=== PATIENT | female | born 1985 | race Caucasian/White ===

== ENCOUNTER 2018-10-11 10:28 | Day surgery (SDC) | payer MEDICAID ==
[2018-10-11] MEDS ORDERED: FAMOTIDINE INJ/PF 20 MG/2 ML SDV IV PRN (11:40)
[2018-10-11] MEDS: HYDROMORPHONE HCL INJ/PF 2 MG/ML AMPULE IV PRN ×3 (11:50→21:34)
[2018-10-11 12:39] LABS: HEMATOCRIT 39.7 % (36.0-47.0); HEMOGLOBIN 13.6 g/dL (12.0-15.5); MEAN CORPUSCULAR HGB CONC 34.2 g/dL (32.0-36.0); MEAN CORPUSCULAR VOLUME 88 fl (80-97); PLATELET COUNT 309 10^3/uL (150-450); RED BLOOD COUNT 4.52 10^6/uL (3.72-5.28); RED CELL DISTRIBUTION WIDTH 12.6 % (11.5-14.0); WHITE BLOOD COUNT 26.2 10^3/uL (4.0-10.5)
[2018-10-11 13:19] LABS: ABSOLUTE LYMPHOCYTES# (MANUAL) 2.9 10^3/uL (0.5-4.7); ABSOLUTE MONOCYTES # (MANUAL) 1.8 10^3/uL (0.1-1.4); BAND NEUTROPHILS % (MANUAL) 1 % (3-5); BASOPHILS % (MANUAL) 0 % (0-2); EOSINOPHILS % (MANUAL) 0 % (0-6); LYMPHOCYTES % (MANUAL) 11 % (13-45); MONOCYTES % (MANUAL) 7 % (3-13); PLATELET COMMENT ADEQUATE; RBC MORPHOLOGY COMMENT NORMO-CYTIC/CHROMIC; SEGMENTED NEUTROPHILS % (MAN) 81 % (42-78); TOTAL CELLS COUNTED 100
[2018-10-11] MEDS ORDERED: METOCLOPRAMIDE HCL INJ/PF 10 MG/2 ML SDV ONE (14:08)
[2018-10-11] MEDS ORDERED: ONDANSETRON HCL INJ/PF 4 MG/2 ML SDV ONE ×2 (14:08→22:02)
[2018-10-11] MEDS: AMPICILLIN SODIUM/SULBACTAM NA 3 GM in NORMAL SALINE 100 ML IV SCH ×2 (14:27→21:35)
[2018-10-11] MEDS ORDERED: ZOLPIDEM TARTRATE 5 MG TABLET PO PRN (21:36)
[2018-10-11] MEDS ORDERED: ONDANSETRON HCL INJ/PF 4 MG/2 ML SDV IV PRN (22:56)
[2018-10-12] MEDS ORDERED: DIPHENHYDRAMINE HCL 50 MG/ML VIAL ONE (03:07)
[2018-10-12] MEDS ORDERED: DIPHENHYDRAMINE HCL 50 MG/ML VIAL IV PRN ×2 (03:09→14:28)
[2018-10-12] MEDS: AMPICILLIN SODIUM/SULBACTAM NA 3 GM in NORMAL SALINE 100 ML IV SCH ×2 (06:54→18:14)
[2018-10-12] MEDS ORDERED: BUPIVACAINE HCL 0.25% /EPINEPHRINE INJ/PF 30 ML SDV ONE (13:40)
[2018-10-12] MEDS ORDERED: FENTANYL CITRATE INJ/PF 100 MCG/2 ML AMPUL ONE (13:40)
[2018-10-12] MEDS ORDERED: KETAMINE HCL INJ 500 MG/10 ML VIAL ONE (13:40)
[2018-10-12] MEDS ORDERED: PROPOFOL INJ 200 MG/20 ML VIAL IV ONE (13:41)
[2018-10-12] MEDS ORDERED: MIDAZOLAM 2 MG/2 ML INJ ONE (13:41)
[2018-10-12] MEDS ORDERED: HYDROMORPHONE HCL INJ/PF 2 MG/ML AMPULE ONE (14:19)
[2018-10-12] MEDS ORDERED: MEPERIDINE HCL/PF INJ 25 MG/1 ML DISP.SYRIN IV PRN (14:28)
[2018-10-12] MEDS ORDERED: FENTANYL CITRATE INJ/PF 100 MCG/2 ML AMPUL IV PRN ×3 (14:28)
[2018-10-12] MEDS ORDERED: MORPHINE SULFATE 10 MG/ML INJ IV PRN (14:28)
[2018-10-12] MEDS ORDERED: PROMETHAZINE HCL INJ 25 MG/1 ML VIAL IV PRN ×2 (14:28)
[2018-10-12] MEDS ORDERED: HYDROMORPHONE HCL INJ/PF 2 MG/ML AMPULE IV PRN ×2 (14:29→15:27)
[2018-10-12] MEDS: FENTANYL CITRATE INJ/PF 100 MCG/2 ML AMPUL ONE ×2 (15:15→15:20)
[2018-10-12] MEDS ORDERED: ACETAMINOPHEN 1,000 MG/100 ML RTUPB IV PRN (15:27)
[2018-10-12] MEDS ORDERED: OXYCODONE-ACETAMINOPHEN 5-325 MG TABLET PO PRN (15:29)
[2018-10-12] MEDS ORDERED: ACETAMINOPHEN 1,000 MG/100 ML RTUPB IV ONE (15:33)
[2018-10-12] MEDS ORDERED: KETOROLAC TROMETHAMINE INJ/PF 30 MG/1 ML SDV ONE (15:33)
[2018-10-12] MEDS: HYDROMORPHONE HCL INJ/PF 2 MG/ML AMPULE ONE ×2 (15:35→16:00)
[2018-10-12] MEDS ORDERED: LIDOCAINE 2% URO-JET 5 ML KIT ONE (16:02)
[2018-10-12] MEDS: RINGERS SOLUTION,LACTATED 1,000 ML IV PRN (17:41)
[2018-10-12] MEDS: OXYCODONE-ACETAMINOPHEN 5-325 MG TABLET PO PRN (17:41)
[2018-10-12] MEDS: BENZOCAINE/MENTHOL AEROSOL SPRAY 56 ML EXT PRN ×3 (17:43→22:38)
[2018-10-12] MEDS: DIPHENHYDRAMINE HCL 25 MG CAPSULE ONE ×2 (19:00→19:11)
[2018-10-12] MEDS: DIPHENHYDRAMINE HCL 50 MG CAPSULE PO PRN (19:10)
--- NOTE | 2018-10-12 19:21 | OPERATIVE REPORT E ---
Operative Report NAME: MICHAEL BOWDEN : 1985 AGE: 33Y DATE OF SURGERY: 10/12/2018 ROOM: 208 PREOPERATIVE DIAGNOSIS: BARTHOLIN'S GLAND ABSCESS. POSTOPERATIVE DIAGNOSIS: BARTHOLIN'S GLAND ABSCESS. OPERATION: Incision and drainage (I and D) of the Bartholin's gland with excision of the Bartholin's gland. SURGEON: JD AMARAL M.D. ANESTHESIA: Dr. Barron with general. FINDINGS: Necrotic inflamed tissue within the Bartholin's gland, with significant site of hardened cellulitis. The gland was draining at the beginning of the case, with incision. Culture was obtained at this time. PATHOLOGY: Glandular tissue. PROCEDURE: Patient was taken to the operating room, prepared and draped in normal sterile fashion in dorsal lithotomy position. Under sterile condition, an in and out cath was performed for approximately 10 mL of clear urine. The infected area was noted and it was noted that it was already draining. The drainage was collected on aerobic and anaerobic culture, and this was passed off to be sent to microbiology. The cellulitic portion of the gland was then opened using a 15 blade, and the tissue was identified and noted to be quite jolly and necrotic in nature. The rest of the drainage was released via this incision and cleaned out copiously with irrigation. The gland was then located and this was excised using some blunt dissection as well as Metzenbaums. The main part of the gland was then removed. A few more cellulitic areas were noted and these were excised using the Metzenbaums. The defect was then closed in layers with 2-0 Vicryl and then 0 Vicryl and then the skin was closed with 2-0 Vicryl in a running manner. The patient was hemostatic at the conclusion of the case. Tolerated procedure well and was taken to recovery in stable condition. DICTATING PHYSICIAN: JD AMARAL M.D. [id number] PHY#: [id number] ID: [id number] JOB#: [id number] ACCT: [id number] cc:JD AMARAL M.D. >
[2018-10-12] MEDS: KETOROLAC TROMETHAMINE INJ/PF 30 MG/1 ML SDV IV SCH (22:03)
[2018-10-13] MEDS ORDERED: MORPHINE SULFATE 10 MG/ML INJ IV PRN ×2 (00:19→10:00)
[2018-10-13] MEDS: AMPICILLIN SODIUM/SULBACTAM NA 3 GM in NORMAL SALINE 100 ML IV SCH ×2 (02:11→09:38)
[2018-10-13] MEDS: OXYCODONE-ACETAMINOPHEN 5-325 MG TABLET PO PRN ×2 (03:10→10:38)
[2018-10-13] MEDS: DIPHENHYDRAMINE HCL 50 MG CAPSULE PO PRN (03:10)
[2018-10-13] MEDS: KETOROLAC TROMETHAMINE INJ/PF 30 MG/1 ML SDV IV SCH (05:12)
[2018-10-13] MEDS: RINGERS SOLUTION,LACTATED 1,000 ML IV PRN (05:13)
--- NOTE | 2018-10-13 11:56 | PDOC DISCHARGE SUMMARY ---
General - Admit/Disc Date/PCP Admission Date/Primary Care Provider: 10/11/18 10:28 Discharge Date: 10/13/18 - Discharge Diagnosis (1) Bartholin's gland abscess Is this a current diagnosis for this admission?: Yes (2) Cellulitis Is this a current diagnosis for this admission?: Yes - Additional Information Resuscitation Status: Full Code Discharge Diet: As Tolerated Discharge Activity: No Lifting Over 10 Pounds, No Lifting/Push/Pulling, Pelvic Rest, No tub bath Home Medications: Escitalopram Oxalate [Lexapro 10 mg Tablet] 10 mg PO DAILY 10/11/18 History of Present Illness History of Present Illness: MICHAEL BOWDEN is a 33 year old female Hospital Course Hospital Course: underwent I&D and bartholin's gland excision in OR. Has had post op hematoma of vulva that is stable and not expanding. several doses of IV unasyn and cellulitis seen at admission is resolved. able to void and is tolerating a regular diet. Physical Exam - Physical Exam Vital Signs: Temp Pulse Resp BP Pulse Ox 98.6 F 52 L 16 98/59 L 100 10/13/18 07:56 10/13/18 07:56 10/13/18 07:56 10/13/18 07:56 10/13/18 07:56 Intake & Output 10/12/18 10/13/18 10/14/18 06:59 06:59 06:59 Intake Total 1350 2100 Output Total 1400 980 750 Balance -50 1120 -750 Weight 83.5 kg General appearance: PRESENT: no acute distress, cooperative - vuvla is stable from yesterday at post op. hematoma is across midline of introitus but is softer and smaller. ecchymosis is present and c/w with her procedure. Result Laboratory Results: 10/11/18 12:27 Plan Discharge Plan: follow up in office in 1 wk. ice packs and sitz baths QID. No heavy lifting > 10 lbs. return to ER if bleeding excessively or if fever above 101. Acute Heart Failure - Is this a Heart Failure Patient?: No
[2018-10-13 12:27] VITALS: BP 100/54
[2018-10-13] MEDS ORDERED: IBUPROFEN 800 MG TABLET PO PRN (22:00)
== END 2018-10-13 13:05 | disposition home or self-care (01) ==
LOC: 4W 10:28 → LC 10:28 → UNDOADMOB 10:28 → 2N 15:55 → 4W 15:55 → UNDODISOB 10-13 13:05 → LC 10-13 13:05 → EDSTATUS 10-13 13:24
PROVIDERS: ATTEND Obstetrics & Gynecology
DX: N75.0 Cyst of Bartholin's gland (principal); N76.4 Abscess of vulva; F17.210 Nicotine dependence, cigarettes, uncomplicated; E66.9 Obesity, unspecified; Z68.31 Body mass index [BMI] 31.0-31.9, adult
CPT/HCPCS: 36415; 87070; 87205; 85025; 81025; 87075; 87077; 87186; 88304 ×2; 00940; 56740; J2250; J3490 ×7; J1200; J3010; J0295 ×3; J1885 ×2; J2765; J1170 ×2; J2405; J7050 ×3; J7120 ×2; J2704; J0131; 940

== ENCOUNTER 2018-12-17 14:55 | Emergency (ER) | payer MEDICAID ==
--- NOTE | 2018-12-17 15:58 | ER Document Report ---
ED Medical Screen (RME) - General Chief Complaint: Chest Pain Stated Complaint: CHEST PAIN Time Seen by Provider: 12/17/18 15:56 Mode of Arrival: Ambulatory Information source: Patient Notes: Patient presents complaining of flank pain that started yesterday with dysuria. Patient also reports cough for the past 4 days with chest pain that started today. Patient denies any fever nausea vomiting or diarrhea. Patient reports a history of neurocardiogenic syncope in the past for which she was supposed to take atenolol but has not been on this medication recently. I have greeted and performed a rapid initial assessment of this patient. A comprehensive ED assessment and evaluation of the patient, analysis of test results and completion of the medical decision making process will be conducted by additional ED providers. TRAVEL OUTSIDE OF THE [place] IN LAST 30 DAYS: No - Related Data Allergies/Adverse Reactions: erythromycin base Allergy (Unknown, Verified 12/17/18 15:54) Past Medical History Psychiatric Medical History: Reports: Hx Depression Physical Exam - Vital signs Vitals: Temp Pulse Resp BP Pulse Ox 98.9 F 79 16 129/78 H 99 12/17/18 15:00 12/17/18 15:00 12/17/18 15:00 12/17/18 15:00 12/17/18 15:00 - Back Back: CVA tenderness Course - Vital Signs Vital signs: Temp Pulse Resp BP Pulse Ox 98.9 F 79 16 129/78 H 99 12/17/18 15:00 12/17/18 15:00 12/17/18 15:00 12/17/18 15:00 12/17/18 15:00
--- NOTE | 2018-12-17 16:48 | RADIOLOGY REPORT (SQ) ---
EXAM DESCRIPTION: CHEST 2 VIEWS COMPLETED DATE/TIME: 12/17/2018 4:24 pm REASON FOR STUDY: cough, cp COMPARISON: None. EXAM PARAMETERS: NUMBER OF VIEWS: two views TECHNIQUE: Digital Frontal and Lateral radiographic views of the chest acquired. RADIATION DOSE: NA LIMITATIONS: none FINDINGS: LUNGS AND PLEURA: No opacities, masses or pneumothorax. No pleural effusion. MEDIASTINUM AND HILAR STRUCTURES: No masses or contour abnormalities. HEART AND VASCULAR STRUCTURES: Heart normal size. No evidence for failure. BONES: No acute findings. HARDWARE: None in the chest. OTHER: No other significant finding. IMPRESSION: NO ACUTE RADIOGRAPHIC FINDING IN THE CHEST. TECHNICAL DOCUMENTATION: JOB ID: [id number] [employer]- All Rights Reserved Reading location - IP/workstation name: [email or web address]
[2018-12-17 16:59] LABS: ABSOLUTE BASOPHILS # (AUTO) 0.1 10^3/uL (0.0-0.2); ABSOLUTE EOSINOPHILS # (AUTO) 0.3 10^3/uL (0.0-0.6); ABSOLUTE LYMPHOCYTES (AUTO) 3.1 10^3/uL (0.5-4.7); ABSOLUTE MONOCYTES (AUTO) 0.7 10^3/uL (0.1-1.4); ABSOLUTE NEUT (AUTO) 6.3 10^3/uL (1.7-8.2); BASOPHILS % (AUTO) 0.7 % (0-2); HEMATOCRIT 42.3 % (36.0-47.0); HEMOGLOBIN 14.3 g/dL (12.0-15.5); LYMPHOCYTES % (AUTO) 29.6 % (13-45); MEAN CORPUSCULAR HEMOGLOBIN 30.3 pg (27.0-33.4); MEAN CORPUSCULAR HGB CONC 33.9 g/dL (32.0-36.0); MEAN CORPUSCULAR VOLUME 90 fl (80-97); MONOCYTES % (AUTO) 7.1 % (3-13); PLATELET COUNT 342 10^3/uL (150-450); RED BLOOD COUNT 4.72 10^6/uL (3.72-5.28); SEGMENTED NEUTROPHILS % (AUTO) 59.6 % (42-78); TOTAL CELLS COUNTED % (AUTO) 100 %; WHITE BLOOD COUNT 10.5 10^3/uL (4.0-10.5)
[2018-12-17 17:03] LABS: APPEARANCE,URINE SLIGHTLY-CLOUDY; BILIRUBIN,URINE NEGATIVE (NEGATIVE); COLOR,URINE YELLOW; GLUCOSE, URINE NEGATIVE (NEGATIVE); KETONES,URINE NEGATIVE (NEGATIVE); LEUKOCYTE ESTERASE,URINE LARGE (NEGATIVE); NITRITE,URINE NEGATIVE (NEGATIVE); PROTEIN,URINE NEGATIVE (NEGATIVE); URINE SPECIFIC GRAVITY 1.012; UROBILINOGEN,URINE NEGATIVE mg/dL (<2.0)
[2018-12-17 17:15] LABS: ALBUMIN 4.5 g/dL (3.5-5.0); ALKALINE PHOSPHATASE 114 U/L (38-126); ANION GAP 9 (5-19); ASPARTATE AMINO TRANSFERASE 33 U/L (14-36); BILIRUBIN,DIRECT 0.1 mg/dL (0.0-0.4); BILIRUBIN,TOTAL 0.3 mg/dL (0.2-1.3); BLOOD UREA NITROGEN 10 mg/dL (7-20); CALCIUM 10.1 mg/dL (8.4-10.2); CARBON DIOXIDE 26 mmol/L (22-30); CHLORIDE 104 mmol/L (98-107); GLUCOSE 90 mg/dL (75-110); POTASSIUM 4.3 mmol/L (3.6-5.0); TOTAL PROTEIN 7.6 g/dL (6.3-8.2)
--- NOTE | 2018-12-17 20:16 | ER Document Report ---
ED General - General Chief Complaint: Chest Pain Stated Complaint: CHEST PAIN Time Seen by Provider: 12/17/18 15:56 Mode of Arrival: Ambulatory Notes: Patient is a 33-year-old female that comes emergency department for 2 complaints. First complaint is leg pain bilaterally that has been there for a couple of days, pain is present with movement and lying down as well but she denies injury, she denies that this is her muscles, she states she feels that she has a UTI. She states she is frequently urinating and she has pain with urination as well. She denies vaginal bleeding or discharge. She denies nausea vomiting, fever or chills. She also states that she has developed a cough and some congestion over the past day or so. She denies difficulty breathing, chest pain other than with cough, or any other complaints at this time. She is medicated for depression, states she used to take atenolol but no longer takes it. This was for neurogenic syncope. She denies any episodes in regards to this. She does smoke, denies alcohol, denies recreational drugs. TRAVEL OUTSIDE OF THE [place] IN LAST 30 DAYS: No - Related Data Allergies/Adverse Reactions: erythromycin base Allergy (Unknown, Verified 12/17/18 15:54) Past Medical History - General Information source: Patient - Social History Smoking Status: Current Every Day Smoker Frequency of alcohol use: None Drug Abuse: None Lives with: Family Family History: Reviewed & Not Pertinent Patient has suicidal ideation: No Patient has homicidal ideation: No Renal/ Medical History: Reports: Hx Kidney Stones Psychiatric Medical History: Reports: Hx Depression - Immunizations Immunizations up to date: Yes Hx Diphtheria, Pertussis, Tetanus Vaccination: Yes Review of Systems - Review of Systems Constitutional: No symptoms reported EENT: No symptoms reported Cardiovascular: No symptoms reported Respiratory: No symptoms reported Gastrointestinal: See HPI Genitourinary: See HPI Female Genitourinary: No symptoms reported Musculoskeletal: See HPI Skin: No symptoms reported Hematologic/Lymphatic: No symptoms reported Neurological/Psychological: No symptoms reported Physical Exam - Vital signs Vitals: Temp Pulse Resp BP Pulse Ox 98.9 F 79 16 129/78 H 99 12/17/18 15:00 12/17/18 15:00 12/17/18 15:00 12/17/18 15:00 12/17/18 15:00 - Notes Notes: GENERAL: Alert, interacts well. No acute distress. HEAD: Normocephalic, atraumatic. EYES: Pupils equal, round, and reactive to light. Extraocular movements intact. ENT: Oral mucosa moist, tongue midline. Oropharynx unremarkable. Airway patent. NECK: Full range of motion. Supple. Trachea midline. LUNGS: Clear to auscultation bilaterally, no wheezes, rales, or rhonchi. No respiratory distress. HEART: Regular rate and rhythm. No murmur ABDOMEN: Soft, non-tender. Non-distended. Bowel sounds present in all 4 quadrants. GENITOURINARY: Deferred EXTREMITIES: Moves all 4 extremities spontaneously. No edema, normal radial and dorsalis pedis pulses bilaterally. No cyanosis. BACK: Minimal generalized tenderness over the back, no specific CVA tenderness on my exam. No cervical, thoracic, lumbar midline tenderness. No saddle anesthesia, normal distal neurovascular exam. Moves all extremities in full range of motion. NEUROLOGICAL: Alert and oriented x3. Normal speech. Cranial nerves II through XII grossly intact. PSYCH: Initially anxious, after discussion very talkative and well-appearing SKIN: Warm, dry, normal turgor. No rashes or lesions noted. Course - Re-evaluation Re-evalutation: Patient initially extremely anxious, I told her her test was negative and then she became very relieved, laughing, talkative. Minimal generalized tenderness over the back without specific CVA tenderness. Soft benign abdomen on my exam. No swelling of the legs or current complaints of leg pain. Based on her exam I do not suspect a blood clot. Patient does report that she has overall cramps and that she has some congestion and cough although no s ignificant cough or congestion are noted on exam. She is not febrile. CBC, chemistry unremarkable, urinalysis shows large amount of leukocyte esterase but also squamous epithelials. Based on her presentation I do not suspect a passing ureterolithiasis and I did discuss this with patient. Patient is requesting treatment for UTI. I feel like this is borderline and patient probably has a virus, however after discussion decision was made to treat her dysuria, culture the urine, and have her follow-up with primary care. She will return if she worsens, this was discussed. Patient states understanding and agreement. Stable time of discharge. - Vital Signs Vital signs: Temp Pulse Resp BP Pulse Ox 99.6 F 90 16 115/57 L 98 12/17/18 20:39 12/17/18 20:39 12/17/18 20:39 12/17/18 20:39 12/17/18 20:39 - Laboratory Result Diagrams: 12/17/18 16:44 12/17/18 16:44 Laboratory results interpreted by me: 12/17/18 16:44 Ur Leukocyte Esterase LARGE H - EKG Interpretation by Me Additional EKG results interpreted by me: 12/17/18 20:13 EKG shows sinus rhythm at a rate of 82, normal axis, QTC of 430, MD interval of 152, no T-wave inversions or ST segment changes in consecutive leads. Machine reads as normal. Discharge - Discharge Clinical Impression: Cough, Flank pain, Dysuria Condition: Stable Disposition: HOME, SELF-CARE Additional Instructions: Your workup shows a clear x-ray, good labs, and borderline urine. Because of your back pain and urinary symptoms we are treating you for a suspected UTI, but you also appear to have a viral syndrome. This should resolve with time. Rest, hydrate, take the ibuprofen for pain, follow up with primary care. Stop smoking. Return if you worsen including difficulty breathing, vomiting, fever, or any other concerning or worsening symptoms. Prescriptions: Doxycycline Hyclate 100 mg PO BID #14 capsule Ibuprofen [Ibu] 800 mg PO TID PRN #30 tablet PRN Reason:
[2018-12-17] MEDS ORDERED: IBUPROFEN 800 MG TABLET PO ONE (20:25)
[2018-12-17] MEDS ORDERED: DOXYCYCLINE HYCLATE 100 MG TABLET PO ONE (20:25)
[2018-12-17 20:42] VITALS: BP 115/57
--- NOTE | 2018-12-18 00:48 | EKG REPORT ---
SEVERITY:- NORMAL ECG - SINUS RHYTHM : Confirmed by: Sher Parks 18-Dec-2018 00:48:05
== END 2018-12-17 20:42 | disposition home or self-care (01) ==
LOC: ER 14:55
DX: R05 Cough (principal); R07.9 Chest pain, unspecified; R30.0 Dysuria; R10.9 Unspecified abdominal pain; M79.604 Pain in right leg; M79.605 Pain in left leg; R35.0 Frequency of micturition; R09.81 Nasal congestion; F17.200 Nicotine dependence, unspecified, uncomplicated
CPT/HCPCS: 93005; 36415; 87086; 84703; 85025; 80053; 81001; 84484; 71046; 93010; J3490 ×2; 99283

== ENCOUNTER → 2019-05-17 | Outpatient (CLI) | payer MEDICAID ==
[2019-05-17 15:52] LABS: A TYPE INFLUENZA AG NEGATIVE (NEGATIVE); B INFLUENZA AG NEGATIVE (NEGATIVE)
--- NOTE | 2019-05-17 17:37 | RADIOLOGY REPORT (SQ) ---
EXAM DESCRIPTION: CHEST PA/LATERAL COMPLETED DATE/TIME: 05/17/2019 4:07 pm REASON FOR STUDY: COUGH,SOB COMPARISON: 12/17/2018 EXAM PARAMETERS: NUMBER OF VIEWS: two views TECHNIQUE: Digital Frontal and Lateral radiographic views of the chest acquired. RADIATION DOSE: NA LIMITATIONS: none FINDINGS: LUNGS AND PLEURA: No opacities, masses or pneumothorax. No pleural effusion. MEDIASTINUM AND HILAR STRUCTURES: No masses or contour abnormalities. HEART AND VASCULAR STRUCTURES: Heart normal size. No evidence for failure. BONES: No acute findings. HARDWARE: None in the chest. OTHER: No other significant finding. IMPRESSION: NO SIGNIFICANT RADIOGRAPHIC FINDING IN THE CHEST. TECHNICAL DOCUMENTATION: JOB ID: [id number] 2010 [employer]- All Rights Reserved Reading location - IP/workstation name: [email or web address]
== END ==
LOC: OD 14:39
PROVIDERS: ATTEND Student in an Organized Health Care Education/Training Program
DX: O26.892 Other specified pregnancy related conditions, second trimester (principal); R05 Cough; R06.02 Shortness of breath; Z3A.24 24 weeks gestation of pregnancy
CPT/HCPCS: 71046; 87804

== ENCOUNTER 2019-08-14 17:33 | Outpatient (CLI) | payer MEDICAID ==
[2019-08-14 18:30] LABS: APPEARANCE,URINE CLOUDY; BILIRUBIN,URINE NEGATIVE (NEGATIVE); COLOR,URINE YELLOW; GLUCOSE, URINE NEGATIVE (NEGATIVE); KETONES,URINE NEGATIVE (NEGATIVE); LEUKOCYTE ESTERASE,URINE NEGATIVE (NEGATIVE); NITRITE,URINE NEGATIVE (NEGATIVE); PROTEIN,URINE NEGATIVE (NEGATIVE); URINE SPECIFIC GRAVITY 1.016; UROBILINOGEN,URINE NEGATIVE mg/dL (<2.0)
[2019-08-14 18:53] LABS: URINE AMPHETAMINES SCREEN NEGATIVE; URINE BARBITURATES SCREEN NEGATIVE; URINE BENZODIAZEPINES SCREEN NEGATIVE; URINE COCAINE SCREEN NEGATIVE; URINE MARIJUANA (THC) SCREEN NEGATIVE; URINE METHADONE SCREEN NEGATIVE; URINE PHENCYCLIDINE SCREEN NEGATIVE
--- NOTE | 2019-08-14 19:15 | Non Stress Test Report ---
Non Stress Test Datetime Report Generated by CPN: 08/14/2019 19:15 DEMOGRAPHIC EGA NST: 36.6 INDICATION Indication for Study (NST) Other: IUP at 36.6; Contractions VITAL SIGNS Temperature - NST: 99.5 Pulse - NST: 110 RESP - NST: 18 NBPSYS NST: 123 NBPDIA NST: 68 MONITORING Monitor Explained: Monitor Explained; Test Explained; Patient Verbalized Understanding Time on Monitor: 08/14/2019 17:50 Time off Monitor: 08/14/2019 18:49 NST Duration: 59 NST INTERVENTIONS NST Interventions: PO Hydration BABY A: [id number] BABY A Movement : Present Contraction Frequency : Irreg FHR Baseline : 145 Accelerations : 15X15 Decelerations : None Variability : Moderate 6-25bpm NST Review: Meets Criteria for Reactive NST NST Review and Verified By : EverettRN NST Results: Reactive NST REPORT Report Trigger: Send Report
== END 2019-08-14 18:58 | disposition home or self-care (01) ==
LOC: LC 17:33
PROVIDERS: ATTEND Obstetrics & Gynecology
DX: O47.03 False labor before 37 completed weeks of gestation, third trimester (principal); Z3A.36 36 weeks gestation of pregnancy
CPT/HCPCS: 59025; 80307; 81005

== ENCOUNTER 2019-08-16 12:15 | Outpatient (CLI) | payer MEDICAID ==
--- NOTE | 2019-08-16 14:38 | RADIOLOGY REPORT (SQ) ---
EXAM DESCRIPTION: U/S PROFILE W/O STRESS IMAGES COMPLETED DATE/TIME: 08/16/2019 2:27 pm REASON FOR STUDY: IUP @ 37w1d- non reactive NST COMPARISON: None. TECHNIQUE: Limited jolly-scale realtime and static images of the fetus to measure specified parameter s. LIMITATIONS: None. FINDINGS: HEART RATE: 150 beats per minute. REGINO: 16.2 cm. Largest pocket 8.8 cm. BREATHING MOVEMENT: 2 points. MOVEMENT: 2 points. POSTURE AND TONE: 2 points. QUALITATIVE REGINO: 2 points. OTHER: Anterior placenta. Transverse presentation. IMPRESSION: BIOPHYSICAL PROFILE: 10/26. Trimester of : Third - 28 weeks to delivery COMMENT: BREATHING MOVEMENTS: 2 POINTS: PRESENT 0 POINTS: ABSENT MOTION: 2 POINTS: PRESENT 0 POINTS: ABSENT TONE: 2 POINTS: PRESENT 0 POINTS: ABSENT AMNIOTIC FLUID VOLUME: 2 POINTS: LARGEST POCKET GREATER THAN 2 CM DEPTH. 0 POINTS: NO POCKET OF 2 CM. TECHNICAL DOCUMENTATION: JOB ID: [id number] 2010 [employer]- All Rights Reserved Reading location - IP/workstation name: [email or web address]
--- NOTE | 2019-08-16 15:39 | Non Stress Test Report ---
Non Stress Test Datetime Report Generated by CPN: 08/16/2019 15:38 DEMOGRAPHIC EGA NST: 37.1 INDICATION Indication for Study (NST) Other: iup at 37.1 VITAL SIGNS Temperature - NST: 98.6 Pulse - NST: 113 RESP - NST: 18 NBPSYS NST: 128 NBPDIA NST: 79 MONITORING Monitor Explained: Monitor Explained; Test Explained; Patient Verbalized Understanding Time on Monitor: 08/16/2019 14:30 Time off Monitor: 08/16/2019 15:05 NST Duration: 35 NST INTERVENTIONS NST Interventions: PO Hydration; Reposition Patient; Vibroacoustic Stim Physician Notified NST: Jayden Mcdonough, CNM BABY A: [id number] BABY A Movement : Present Contraction Frequency : x1 FHR Baseline : 140 Accelerations : 15X15 Decelerations : None Variability : Moderate 6-25bpm NST Review: Meets Criteria for Reactive NST NST Review and Verified By : Eloy Stevens, RN NST Results: Reactive NST COMMENTS NST Comments: C. Mcdonough on unit and reviewed strip. BPP 8/8. NST REPORT Report Trigger: Send Report
== END 2019-08-16 15:28 | disposition home or self-care (01) ==
LOC: LC 12:15
PROVIDERS: ATTEND Student in an Organized Health Care Education/Training Program
DX: O32.2XX0 Maternal care for transverse and oblique lie, not applicable or unspecified (principal); Z3A.37 37 weeks gestation of pregnancy
CPT/HCPCS: 36415; 76819; 83036

== ENCOUNTER 2019-08-29 23:04 | Outpatient (CLI) | payer MEDICAID ==
[2019-08-30 00:04] LABS: APPEARANCE,URINE CLOUDY; BILIRUBIN,URINE NEGATIVE (NEGATIVE); COLOR,URINE AMBER; GLUCOSE, URINE NEGATIVE (NEGATIVE); KETONES,URINE TRACE mg/dL (NEGATIVE); LEUKOCYTE ESTERASE,URINE MODERATE (NEGATIVE); NITRITE,URINE NEGATIVE (NEGATIVE); PROTEIN,URINE 100 mg/dL (NEGATIVE); URINE SPECIFIC GRAVITY 1.026
[2019-08-30 00:32] LABS: URINE AMPHETAMINES SCREEN NEGATIVE; URINE BARBITURATES SCREEN NEGATIVE; URINE BENZODIAZEPINES SCREEN NEGATIVE; URINE COCAINE SCREEN NEGATIVE; URINE MARIJUANA (THC) SCREEN NEGATIVE; URINE METHADONE SCREEN NEGATIVE; URINE PHENCYCLIDINE SCREEN NEGATIVE
--- NOTE | 2019-08-30 00:53 | Non Stress Test Report ---
Non Stress Test Datetime Report Generated by CPN: 08/30/2019 00:53 DEMOGRAPHIC EGA NST: 39.0 INDICATION Indication for Study (NST) Other: labor check at term without ruptured membranes MONITORING Monitor Explained: Monitor Explained; Test Explained; Patient Verbalized Understanding Time on Monitor: 08/29/2019 23:30 Time off Monitor: 08/30/2019 00:50 NST Duration: 80 NST INTERVENTIONS NST Interventions: PO Hydration; Reposition Patient Physician Notified NST: Dr Patel BABY A: [id number] BABY A Movement : Present Contraction Frequency : Irregular FHR Baseline : 145 Accelerations : 15X15 Decelerations : None Variability : Moderate 6-25bpm NST Review: Meets Criteria for Reactive NST NST Review and Verified By : J.Field RN NST Results: Reactive NST REPORT Report Trigger: Send Report
== END 2019-08-30 01:06 | disposition home or self-care (01) ==
LOC: LC 23:04
PROVIDERS: ATTEND Obstetrics & Gynecology
DX: O99.283 Endocrine, nutritional and metabolic diseases complicating pregnancy, third trimester (principal); E86.0 Dehydration; Z3A.39 39 weeks gestation of pregnancy
CPT/HCPCS: 59025; 80307; 81005; 84112

== ENCOUNTER 2019-09-03 16:02 | Outpatient (CLI) | payer MEDICAID ==
--- NOTE | 2019-09-03 18:37 | RADIOLOGY REPORT (SQ) ---
EXAM DESCRIPTION: U/S PROFILE W/O STRESS IMAGES COMPLETED DATE/TIME: 09/03/2019 6:28 pm REASON FOR STUDY: NON-REACTIVE NST COMPARISON: 08/16/2019 TECHNIQUE: Limited jolly-scale realtime and static images of the fetus to measure specified parameter s. LIMITATIONS: None. FINDINGS: HEART RATE: 160 beats per minute. REGINO: 19.9 cm. LVP--10.9 cm x 9.3 cm BREATHING MOVEMENT: 2 points. MOVEMENT: 2 points. POSTURE AND TONE: 2 points. QUALITATIVE REGINO: 2 points. OTHER: Vertex presentation. IMPRESSION: BIOPHYSICAL PROFILE: 10/26. Trimester of : Third - 28 weeks to delivery COMMENT: BREATHING MOVEMENTS: 2 POINTS: PRESENT 0 POINTS: ABSENT MOTION: 2 POINTS: PRESENT 0 POINTS: ABSENT TONE: 2 POINTS: PRESENT 0 POINTS: ABSENT AMNIOTIC FLUID VOLUME: 2 POINTS: LARGEST POCKET GREATER THAN 2 CM DEPTH. 0 POINTS: NO POCKET OF 2 CM. TECHNICAL DOCUMENTATION: JOB ID: [id number] 2010 [employer]- All Rights Reserved Reading location - IP/workstation name: [email or web address]
== END 2019-09-03 18:42 | disposition home or self-care (01) ==
LOC: LC 16:02
PROVIDERS: ATTEND Obstetrics & Gynecology
DX: O36.8130 Decreased fetal movements, third trimester, not applicable or unspecified (principal); Z3A.39 39 weeks gestation of pregnancy; Z88.1 Allergy status to other antibiotic agents
CPT/HCPCS: 59025; 76819

== ENCOUNTER 2019-09-07 07:33 | Inpatient (IN) | payer MEDICAID ==
[2019-09-07] MEDS ORDERED: OXYTOCIN/0.9 % SODIUM CHLORIDE 30 UNIT/500 ML RTUINJ IV PRN ×2 (08:23→10:30)
[2019-09-07] MEDS ORDERED: RINGERS SOLUTION,LACTATED 1,000 ML IV PRN (08:25)
[2019-09-07] MEDS ORDERED: RINGERS SOLUTION,LACTATED 1,000 ML IV ONE (08:25)
[2019-09-07 08:44] LABS: APPEARANCE,URINE CLOUDY; BILIRUBIN,URINE NEGATIVE (NEGATIVE); COLOR,URINE AMBER; GLUCOSE, URINE NEGATIVE (NEGATIVE); KETONES,URINE TRACE mg/dL (NEGATIVE); LEUKOCYTE ESTERASE,URINE MODERATE (NEGATIVE); NITRITE,URINE NEGATIVE (NEGATIVE); PROTEIN,URINE 100 mg/dL (NEGATIVE); URINE SPECIFIC GRAVITY 1.027
[2019-09-07] MEDS ORDERED: OXYTOCIN/0.9 % SODIUM CHLORIDE 30 UNIT/500 ML RTUINJ ONE (08:49)
[2019-09-07] MEDS ORDERED: MISOPROSTOL 0.2 MG TABLET ONE (08:49)
[2019-09-07] MEDS ORDERED: OXYTOCIN 10 UNIT/ML VIAL ONE (08:49)
[2019-09-07] MEDS ORDERED: LIDOCAINE 1% INJ-PF (10 MG/ML) 30 ML SDV ONE (08:49)
[2019-09-07 09:30] LABS: ABSOLUTE BASOPHILS # (AUTO) 0.1 10^3/uL (0.0-0.2); ABSOLUTE EOSINOPHILS # (AUTO) 0.1 10^3/uL (0.0-0.6); ABSOLUTE LYMPHOCYTES (AUTO) 2.7 10^3/uL (0.5-4.7); ABSOLUTE NEUT (AUTO) 11.2 10^3/uL (1.7-8.2); BASOPHILS % (AUTO) 0.4 % (0-2); EOSINOPHILS % (AUTO) 0.5 % (0-6); HEMATOCRIT 37.6 % (36.0-47.0); HEMOGLOBIN 12.7 g/dL (12.0-15.5); LYMPHOCYTES % (AUTO) 17.6 % (13-45); MEAN CORPUSCULAR HEMOGLOBIN 30.6 pg (27.0-33.4); MEAN CORPUSCULAR HGB CONC 33.8 g/dL (32.0-36.0); MEAN CORPUSCULAR VOLUME 91 fl (80-97); MONOCYTES % (AUTO) 6.9 % (3-13); PLATELET COUNT 323 10^3/uL (150-450); RED BLOOD COUNT 4.15 10^6/uL (3.72-5.28); RED CELL DISTRIBUTION WIDTH 13.9 % (11.5-14.0); SEGMENTED NEUTROPHILS % (AUTO) 74.6 % (42-78); TOTAL CELLS COUNTED % (AUTO) 100 %; WHITE BLOOD COUNT 15.1 10^3/uL (4.0-10.5)
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
[2019-09-07 10:08] LABS: URINE AMPHETAMINES SCREEN NEGATIVE; URINE BARBITURATES SCREEN NEGATIVE; URINE BENZODIAZEPINES SCREEN NEGATIVE; URINE COCAINE SCREEN NEGATIVE; URINE MARIJUANA (THC) SCREEN NEGATIVE; URINE METHADONE SCREEN NEGATIVE; URINE PHENCYCLIDINE SCREEN NEGATIVE
--- NOTE | 2019-09-07 10:20 | Warning Signs in Babies ---
VOD Warning Signs Datetime Report Generated by [facility]: 09/07/2019 10:20 VOD#608 -Warning Signs in Babies: Needs to be viewed. (08/14/2019 17:44:Conchita Davila RN)
[2019-09-07] MEDS ORDERED: MISOPROSTOL 0.2 MG TABLET PR PRN (10:30)
[2019-09-07] MEDS ORDERED: MAGNESIUM HYDROXIDE SUSP 30 ML UDCUP PO PRN (10:30)
[2019-09-07] MEDS ORDERED: PROMETHAZINE HCL 25 MG TABLET PO PRN (10:30)
[2019-09-07] MEDS ORDERED: ACETAMINOPHEN 325 MG TABLET PO PRN (10:30)
[2019-09-07] MEDS ORDERED: MEASLES,MUMPS&RUBELLA VACC/PF 0.5 ML VIAL SUBCUT PRN (10:30)
[2019-09-07] MEDS ORDERED: DIPH/PERTUSS(ACELL)/TETANUS VAC/PF 0.5 ML SYR (>=10YO) IM PRN (10:30)
[2019-09-07] MEDS ORDERED: ACETAMINOPHEN WITH CODEINE #3 TABLET PO PRN ×2 (10:30)
[2019-09-07] MEDS ORDERED: PROMETHAZINE HCL INJ 25 MG/1 ML VIAL IV PRN (10:30)
[2019-09-07] MEDS ORDERED: NA PHOS,M-B/NA PHOS,DI-BA (ADULT) 133 ML ENEMA PR PRN (10:30)
[2019-09-07] MEDS ORDERED: PROMETHAZINE HCL 25 MG SUPP.RECT PR PRN (10:30)
[2019-09-07] MEDS ORDERED: DIPHENHYDRAMINE HCL 25 MG CAPSULE PO PRN (10:30)
[2019-09-07] MEDS ORDERED: ZOLPIDEM TARTRATE 5 MG TABLET PO PRN (10:30)
[2019-09-07] MEDS ORDERED: PSEUDOEPHEDRINE HCL 30 MG TABLET PO PRN (10:30)
[2019-09-07] MEDS ORDERED: GLYCERIN/WITCH HAZEL LEAF 1 EACH MED..WIPE TP PRN (10:30)
[2019-09-07] MEDS ORDERED: DIBUCAINE 1% OINTMENT 28 GM TP PRN (10:30)
[2019-09-07] MEDS ORDERED: BENZOCAINE/MENTHOL AEROSOL SPRAY 56 ML TOP PRN (10:30)
[2019-09-07] MEDS ORDERED: FLUCONAZOLE 100 MG TABLET PO ONE (10:36)
[2019-09-07] MEDS ORDERED: BENZOCAINE/MENTHOL AEROSOL SPRAY 56 ML ONE (11:03)
[2019-09-07] MEDS ORDERED: FLUCONAZOLE 100 MG TABLET ONE (11:03)
--- NOTE | 2019-09-07 11:41 | Delivery Summary ---
Del Sum A-C Datetime Report Generated by CPN: 09/07/2019 11:41 DELIVERY PERSONNEL DELIVERY PERSONNEL: [id number] Delivery Doctor:: Tracey Darden MD Labor and Delivery Nurse:: Conchita Davila RNsoloist dancer Nurse:: Tony Boone RN Nursery Nurse:: Yanet Amaro RN Phlebotomist Medical Lab Assistant/MOBILITY ARCHITECT: Bre Roberto, LOW PRESSURE BOILER TENDER Additional Personnel: : Astrid Stevens RN MATERNAL INFORMATION Delivery Anesthesia: Pudendal Medications After Delivery: Pitocin 30 Units in 500ml NS/D5W; Cytotec 1000mcg Per Rectum/Vagina Estimated Blood Loss (ml): 200 Delivery QBL: 200 Maternal Complications: None Provider Comments: AL noted with decreasing variability and increasing decels. Reviewed with patient need to reduce AL of cervix and consented for pudendal block. Pudendal block performed. AL reduced. VFI in PATY presentation. No nuchal cord. Shoulders and body delivered without difficulty. Cord doubly clamped and cut and to maternal abdomen for NRP. Placenta delivered intact spontaneously. FF at U after cytotec. No perineal lacerations. No repair needed. Good hemostasis. Mother and baby stable upon provider leaving the room LABOR SUMMARY EDC: 09/05/2019 00:00 No. Babies in Womb: 1 Attempted: No Labor Anesthesia: None LABOR INFORMATION Reason for Induction: Post Dates; Polyhydramnios Onset of Labor: 09/07/2019 07:00 Complete Dilatation: 09/07/2019 09:55 Oxytocin: N/A Group B Beta Strep: Negative Antibiotics # of Doses: 0 Antibiotics Time of Last Dose: N/A Name of Antibiotic Given: N/A Steroids Given: None Reason Steroids Not Administered: Not Applicable MEMBRANES Membranes Rupture Method: Artificial Rupture of Membranes: 09/07/2019 08:40 Length of Rupture (hr): 1.37 Amniotic Fluid Color: Clear Amniotic Fluid Amount: Copious Amniotic Fluid Odor: None STAGES OF LABOR Stage 1 hr: 2 Stage 1 min: 55 Stage 2 hr: 0 Stage 2 min: 7 Stage 3 hr: 0 Stage 3 min: 5 Total Time in Labor hr: 3 Total Time in Labor min: 7 VAGINAL DELIVERY Episiotomy: None Laceration #1: None Laceration Extension #1: N/A Laceration Repair: Not Applicable Sponge Count Correct: N/A Sharps Count Correct: N/A CSECTION DELIVERY Primary Indication: N/A Secondary Indication: N/A CSection Incidence: N/A Labor: N/A Elective: N/A CSection Incision: N/A BABY A INFORMATION Infant Delivery Date/Time: 09/07/2019 10:02 Method of Delivery: Vaginal Nurse Controlled Delivery: No Born in Route : No : N/A Forceps: N/A Vacuum Extraction: N/A Shoulder Dystocia : No PRESENTATION/POSITION BABY A Presentation: Cephalic Cephalic Presentation: Vertex Vertex Position: Left Occipital Anterior Breech Presentation: N/A PLACENTA INFORMATION BABY A Placenta Delivery Time : 09/07/2019 10:07 Placenta Method of Delivery: Spontaneous Placenta Status: Delivered SCORES BABY A Heart Rate 1 min: >100 bpm Resp Effort 1 min: Good Cry Reflex Irritability 1 min: Cough or Sneeze or Pulls Away Muscle Tone 1 min: Active Motion Color 1 min: Blue/Pale Resuscitation Effort 1 min: Tactile Stimulation SCORE 1 MIN: 8 Heart Rate 5 min: >100 bpm Resp Effort 5 min: Good Cry Reflex Irritability 5 min: Cough or Sneeze or Pulls Away Muscle Tone 5 min: Active Motion Color 5 min: Body [place], Extremities Blue Resuscitation Effort 5 min: Tactile Stimulation SCORE 5 MIN: 9 INFORMATION BABY A Gestational Age at Delivery: 40.2 Gestational Status: Full Term- 39- 40.6 Weeks Infant Outcome : Liveborn Condition : Stable Infant Sex: Female IDENTIFICATION BABY A Infant Verification Date/Time: 09/07/2019 10:18 ID Band Number: [id number] Mother's Name Verified: Yes RN Verifying : INGA Monte Additional Verifying Personnel: JNiebuhr,RN WEIGHT/LENGTH BABY A Birthweight (gm): 3863 Weight (lb): 8 Infant Weight (oz): 8 Length (in): 20.50 Infant Length (cm): 52.07 CORD INFORMATION BABY A No. Cord Vessels: 3 Nuchal Cord : N/A Cord Blood Taken: Yes-For Eval (Mom's Blood Type - or O+) Suction: None ASSESSMENT BABY A Skin to Skin: Yes BABY B INFORMATION : N/A SIGNATURES Signature: with User ID: [email or web address]
[2019-09-07] MEDS: IBUPROFEN 800 MG TABLET PO SCH ×2 (13:27→21:02)
[2019-09-07] MEDS: DOCUSATE SODIUM 100 MG CAPSULE PO SCH (17:30)
[2019-09-07] MEDS: FERROUS SULFATE 325 MG TABLET PO SCH (17:30)
[2019-09-07] MEDS: FAMOTIDINE 20 MG TABLET PO SCH (21:02)
[2019-09-08] MEDS: IBUPROFEN 800 MG TABLET PO SCH ×3 (05:32→22:01)
[2019-09-08 07:21] LABS: HEMOGLOBIN 11.7 g/dL (12.0-15.5); MEAN CORPUSCULAR HEMOGLOBIN 31.2 pg (27.0-33.4); MEAN CORPUSCULAR HGB CONC 34.5 g/dL (32.0-36.0); MEAN CORPUSCULAR VOLUME 91 fl (80-97); PLATELET COUNT 267 10^3/uL (150-450); RED BLOOD COUNT 3.76 10^6/uL (3.72-5.28); RED CELL DISTRIBUTION WIDTH 13.6 % (11.5-14.0); WHITE BLOOD COUNT 15.5 10^3/uL (4.0-10.5)
[2019-09-08] MEDS: DOCUSATE SODIUM 100 MG CAPSULE PO SCH ×2 (09:47→18:08)
[2019-09-08] MEDS: SENNOSIDES/DOCUSATE 8.6-50 MG 1 EACH TABLET PO SCH (09:47)
[2019-09-08] MEDS: FERROUS SULFATE 325 MG TABLET PO SCH ×2 (09:47→18:08)
[2019-09-08] MEDS: PRENATAL VITAMIN W DHA CAPSULE PO SCH (09:47)
[2019-09-08] MEDS: FAMOTIDINE 20 MG TABLET PO SCH ×2 (09:47→22:01)
--- NOTE | 2019-09-08 10:03 | PDOC PROGRESS REPORT ---
Subjective-OB Progress Note for:: 09/08/19 Subjective: reports bleeding slowing, pain controlled with current meds. denies needs Physical Exam (OB) Vital Signs: Temp Pulse Resp BP Pulse Ox 97.7 F 81 18 128/72 H 100 09/08/19 07:24 09/08/19 07:24 09/08/19 07:24 09/08/19 07:24 09/08/19 07:24 Intake & Output 09/07/19 09/08/19 09/09/19 06:59 06:59 06:59 Intake Total 500 Balance 500 Weight 99.3 kg - Abdomen Description: Soft, Round Hernia Present: No Fundal Description: Firm, Midline Fundal Height: u/u - u/2 - Abdominal Distension: No distension Tenderness: Nontender - Extremities Lower extremities: Ankur's sign - neg Calf: Normal, Nontender Objective-Diagnostic Laboratory: 09/08/19 07:03 09/07/19 09/08/19 09:05 07:03 WBC 15.5 H RBC 3.76 Hgb 11.7 L Hct 34.0 L MCV 91 MCH 31.2 MCHC 34.5 RDW 13.6 Plt Count 267 Blood Type O POSITIVE Antibody Screen NEGATIVE Assessment and Plan(PN) - Assessment and Plan (1) Polyhydramnios Qualifiers: Fetus number: single or unspecified fetus Is this a current diagnosis for this admission?: Yes (2) Precipitous delivery, delivered (current hospitalization) Is this a current diagnosis for this admission?: Yes - Time Spent with Patient Time with patient: Less than 15 minutes - Disposition Anticipated Discharge: Home Within: within 24 hours
[2019-09-09] MEDS: IBUPROFEN 800 MG TABLET PO SCH (05:44)
[2019-09-09] MEDS: FERROUS SULFATE 325 MG TABLET PO SCH (10:18)
[2019-09-09] MEDS: PRENATAL VITAMIN W DHA CAPSULE PO SCH (10:18)
[2019-09-09] MEDS: DOCUSATE SODIUM 100 MG CAPSULE PO SCH (10:18)
[2019-09-09] MEDS: FAMOTIDINE 20 MG TABLET PO SCH (10:18)
[2019-09-09] MEDS: SENNOSIDES/DOCUSATE 8.6-50 MG 1 EACH TABLET PO SCH (10:18)
--- NOTE | 2019-09-09 10:19 | PDOC DISCHARGE SUMMARY ---
Impression - Admit/DC Date/PCP Admission Date/Primary Care Provider: 09/07/19 07:33 MADELYN ANGEL MD Discharge Date: 09/09/19 - Discharge Diagnosis (1) Polyhydramnios Is this a current diagnosis for this admission?: Yes (2) Precipitous delivery, delivered (current hospitalization) Is this a current diagnosis for this admission?: Yes - Additional Information Discharge Diet: Regular Discharge Activity: Balance Activity w/Rest, Pelvic Rest Referrals: MADELYN ANGEL MD [Primary Care Provider] - Prescriptions: Ibuprofen [Motrin 800 mg Tablet] 800 mg PO Q8HP PRN #60 tablet PRN Reason: Home Medications: Pnv No.95/Ferrous Fum/Folic AC [ Caplet] 1 tab PO DAILY 08/14/19 Ibuprofen [Motrin 800 mg Tablet] 800 mg PO Q8HP PRN #60 tablet 09/09/19 Results Laboratory Results: WBC 15.5 10^3/uL (4.0-10.5) H 09/08/19 07:03 RBC 3.76 10^6/uL (3.72-5.28) 09/08/19 07:03 Hgb 11.7 g/dL (12.0-15.5) L 09/08/19 07:03 Hct 34.0 % (36.0-47.0) L 09/08/19 07:03 MCV 91 fl (80-97) 09/08/19 07:03 MCH 31.2 pg (27.0-33.4) 09/08/19 07:03 MCHC 34.5 g/dL (32.0-36.0) 09/08/19 07:03 RDW 13.6 % (11.5-14.0) 09/08/19 07:03 Plt Count 267 10^3/uL (150-450) 09/08/19 07:03 Lymph % (Auto) 17.6 % (13-45) 09/07/19 09:05 [place] % (Auto) 6.9 % (3-13) 09/07/19 09:05 Eos % (Auto) 0.5 % (0-6) 09/07/19 09:05 Baso % (Auto) 0.4 % (0-2) 09/07/19 09:05 Absolute Neuts (auto) 11.2 10^3/uL (1.7-8.2) H 09/07/19 09:05 Absolute Lymphs (auto) 2.7 10^3/uL (0.5-4.7) 09/07/19 09:05 Absolute Monos (auto) 1.0 10^3/uL (0.1-1.4) 09/07/19 09:05 Absolute Eos (auto) 0.1 10^3/uL (0.0-0.6) 09/07/19 09:05 Absolute Basos (auto) 0.1 10^3/uL (0.0-0.2) 09/07/19 09:05 Seg Neutrophils % 74.6 % (42-78) 09/07/19 09:05 Urine Color [place] 09/07/19 07:45 Urine Appearance CLOUDY 09/07/19 07:45 Urine pH 6.0 (5.0-9.0) 09/07/19 07:45 Ur Specific [place] 1.027 09/07/19 07:45 Urine Protein 100 mg/dL (NEGATIVE) H 09/07/19 07:45 Urine Glucose (UA) NEGATIVE mg/dL (NEGATIVE) 09/07/19 07:45 Urine Ketones TRACE mg/dL (NEGATIVE) H 09/07/19 07:45 Urine Blood NEGATIVE (NEGATIVE) 09/07/19 07:45 Urine Nitrite NEGATIVE (NEGATIVE) 09/07/19 07:45 Urine Bilirubin NEGATIVE (NEGATIVE) 09/07/19 07:45 Urine Urobilinogen 2.0 mg/dL (<2.0) H 09/07/19 07:45 Ur Leukocyte Esterase MODERATE (NEGATIVE) H 09/07/19 07:45 Urine Ascorbic Acid 20 (NEGATIVE) H 09/07/19 07:45 Urine Opiates Screen NEGATIVE 09/07/19 07:45 Urine Methadone Screen NEGATIVE 09/07/19 07:45 Ur Barbiturates Screen NEGATIVE 09/07/19 07:45 Ur Phencyclidine Scrn NEGATIVE 09/07/19 07:45 Ur Amphetamines Screen NEGATIVE 09/07/19 07:45 U Benzodiazepines Scrn NEGATIVE 09/07/19 07:45 Urine Cocaine Screen NEGATIVE 09/07/19 07:45 U Marijuana (THC) Screen NEGATIVE 09/07/19 07:45 Blood Type O POSITIVE 06/19/20 09:05 Antibody Screen NEGATIVE 09/07/19 09:05 Plan Plan of Treatment: follow up in 4 weeks at [facility] for post check
[2019-09-09 11:24] VITALS: BP 122/58
== END 2019-09-09 13:10 | disposition home or self-care (01) | DRG 807 ==
LOC: LR 07:33 → 2S 12:15
PROVIDERS: ADMIT Student in an Organized Health Care Education/Training Program; ATTEND Student in an Organized Health Care Education/Training Program
PROC: 10E0XZZ Delivery of Products of Conception, External Approach (ICD-10-PCS; principal; 2019-09-07)
DX: O48.0 Post-term pregnancy (principal); Z37.0 Single live birth; O40.3XX0 Polyhydramnios, third trimester, not applicable or unspecified; O76 Abnormality in fetal heart rate and rhythm complicating labor and delivery; O62.3 Precipitate labor; O99.334 Smoking (tobacco) complicating childbirth; F17.210 Nicotine dependence, cigarettes, uncomplicated; Z3A.40 40 weeks gestation of pregnancy
CPT/HCPCS: 36415; 80307; 81005; 85025; 85027; 86592; 86850; 86900; 86901; 88307; J2590; J3490